=== PATIENT | male | born 1980 | race Caucasian/White ===

== ENCOUNTER 2020-01-09 23:18 | Emergency (ER) | payer MEDICAID ==
[~2020-01-09] VITALS: Ht 182.9 cm; Wt 81.6 kg
[2020-01-10] MEDS ORDERED: LIDOCAINE 1% HCL (LOCAL ANESTH.) INJ 20ML MDV IJ ONE (04:15)
[2020-01-10] MEDS ORDERED: cefTRIAXone SOD 1,000 MG VL IM ONE (04:15)
[2020-01-10] MEDS ORDERED: TETANUS-DIPTH-ACEL PERTUSSIS 0.5ML SYR Tdap IM ONE (05:00)
[2020-01-10] MEDS ORDERED: HYDROcodone-ACET 5/325MG TAB PO ONE (05:00)
[2020-01-10 06:04] VITALS: BP 142/90
== END 2020-01-10 06:26 | disposition home or self-care (01) ==
LOC: ER 23:34
DX: S41.131A Puncture wound without foreign body of right upper arm, initial encounter (principal); W01.10XA Fall on same level from slipping, tripping and stumbling with subsequent striking against unspecified object, initial encounter; Y93.89 Activity, other specified; Y92.89 Other specified places as the place of occurrence of the external cause; Y99.8 Other external cause status
CPT/HCPCS: 90471; 90715